=== PATIENT | male | born 1985 | race Caucasian/White ===

== ENCOUNTER 2021-08-25 11:08 | Emergency (ER) | payer OTHER, SELFPAY ==
[2021-08-25 11:20] VITALS: BP 142/90; PULSE 79; RESP 18; O2SAT 96; BMI 27.2
--- NOTE | 2021-08-25 11:25 | DI.RAD.S_ITS ---
PROCEDURE: XR CHEST 1V INDICATIONS: chest pain TECHNIQUE: One view of the chest was acquired. COMPARISON: None. FINDINGS: Surgical changes and devices: None. Lungs and pleura: An incomplete inspiratory result is noted, causing a crowded appearance to the lung markings. No focal infiltrates are seen. No pneumothorax or significant pleural effusions are seen. Mediastinum: Mediastinal contours appear normal. Heart size is normal. Bones and chest wall: No suspicious bony lesions. Overlying soft tissues appear unremarkable. IMPRESSION: Limited portable chest examination, without a significant cardiopulmonary abnormality identified. Dictated by: Bowen Song M.D. on 08/25/2021 at 10:49 Approved by: Bowen Song M.D. on 08/25/2021 at 10:49
[2021-08-25 11:29] VITALS: PULSE 78; RESP 14; O2SAT 97
[2021-08-25 11:30] VITALS: BP 137/92; PULSE 77; RESP 18; O2SAT 96
[2021-08-25 11:39] LABS: Add Manual Diff / Slide Review NO; Basophils Absolute Auto 100 /uL (0-100); Basophils Percent Auto 1.1 % (0-2); Eosinophils Absolute Auto 100 /uL (0-450); Eosinophils Percent Auto 2.7 % (2-4); Hematocrit 47.6 % (41-53); Hemoglobin 16.6 g/dL (13.5-17.5); Lymphocytes Absolute Auto 1700 /uL (1100-4500); Lymphocytes Percent Auto 31.9 % (25-40); Mean Corpuscular HGB Conc 34.8 % (30-36); Mean Corpuscular Hemoglobin 29.8 PG (26-34); Mean Corpuscular Volume 85.6 fL (80-100); Monocytes Absolute Auto 400 /uL (0-900); Monocytes Percent Auto 7.6 % (3-14); Neutrophils Absolute Auto 3100 /uL (1500-7000); Neutrophils Percent Auto 56.7 % (50-75); Platelet Count 247 X10^3/uL (150-400); Red Blood Cell Count 5.57 X10^6/uL (4.5-5.9); Red Cell Distribution Width 12.8 % (11.6-14.8); White Blood Cell Count 5.4 X10^3/uL (4.5-11.0)
[2021-08-25 11:50] LABS: Alanine Aminotransferase 36 IU/L (<50); Albumin 4.6 g/dL (3.5-5.0); Albumin Globulin Ratio 1.4 (1.0-2.8); Alkaline Phosphatase 56 U/L (38-126); Aspartate Aminotransferase 28 IU/L (17-59); BUN Creatinine Ratio 10.6 (6-22); Bilirubin Total 0.8 mg/dL (0.2-1.3); Blood Urea Nitrogen 10 mg/dL (9-20); COVID19 -Nasal RAPID Negative (Negative); Calcium 9.3 mg/dL (8.4-10.2); Carbon Dioxide 23 mmol/L (22-32); Chloride 104 mmol/L (98-107); Creatine Kinase 48 U/L (55-170); Estimated Glomerular Filt Rate > 60.0 mL/min (>60); Globulin 3.2 g/dL (1.7-4.1); Glucose 94 mg/dL (70-100); HEMOLYSIS < 15 (0-50); Lipase 93 U/L (23-300); Sodium 138 mmol/L (137-145); Total Protein 7.8 g/dL (6.3-8.2)
[2021-08-25 12:00] VITALS: PULSE 81; RESP 17; O2SAT 96
[2021-08-25 12:01] LABS: Troponin I < 0.012 ng/mL (0.01-0.034)
--- NOTE | 2021-08-25 12:22 | ED.EXTPRO ---
HPI - Extremity Problem <Rubio Deleon PA-C - Last Filed: 08/25/21 19:34> General Chief complaint: Extremity Problem,Nontraumatic Stated complaint: LT ARM PAIN/EKG DONE [facility] Time Seen by Provider: 08/25/21 12:03 Source: patient Mode of arrival: Ambulatory Limitations: no limitations History of Present Illness HPI Narrative: Patient is a 35-year-old male presenting to the emergency department today for evaluation left arm pain. Patient states is left arm pain began at approximately 2:30 p.m. yesterday, and he describes it as a ?excruciating, shooting pain from the shoulder to the wrist that lasted through last night. He denies numbness and tingling throughout the left upper extremity. Patient notes experiencing bilateral thigh pain 2 days ago that has since resolved. Of note, patient states that he had dental work performed about 1 month ago any notes that he experienced numbness in his chin and lip on 08/21/2021 that he 1st noticed while shaving. Patient denies fever, chills, chest pain, shortness of breath, cough, hemoptysis, abdominal pain, nausea, vomiting, diarrhea, dizziness, changes in vision, diaphoresis. No recent trauma or injuries reported. No other concerns voiced at this time. Related Data Allergies Allergy/AdvReac Type Severity Reaction Status Date / Time No Known Drug Allergies Allergy Verified 08/25/21 11:25 Review of Systems <Rubio Deleon PA-C - Last Filed: 08/25/21 19:34> Constitutional Constitutional: Denies chills, Denies fever(s), Denies frequent falls, Denies lethargy and Denies weakness Eyes Eyes: Denies change in vision, Denies eye discharge, Denies irritation and Denies loss of vision ENT Ears, Nose, Mouth, and Throat: Denies dizziness Cardiovascular Cardiovascular: Denies chest pain, Denies irregular heart rhythm, Denies lightheadedness, Denies palpitations, Denies dyspnea, Denies dyspnea on exertion and Denies orthopnea Respiratory Respiratory: Denies cough, Denies dyspnea, Denies dyspnea on exertion and Denies wheezing Gastrointestinal Gastrointestinal: Denies abdominal pain, Denies change in bowel habits, Denies diarrhea, Denies nausea and Denies vomiting Musculoskeletal Musculoskeletal: Reports numbness (Chin and lip) and Reports other (Left arm pain from shoulder to wrist) Neurologic Neurologic: Denies behavioral changes, Denies confusion, Denies dizziness, Denies frequent falls, Denies loss of vision, Reports numbness (Chin and lip) and Denies weakness Psychiatric Psychiatric: Denies behavioral changes and Denies confusion Endocrine Endocrine: Denies palpitations Allergic/Immunologic Allergic/Immunologic: Denies wheezing Patient History <Rubio Deleon PA-C - Last Filed: 08/25/21 19:34> Social History Smoking Status: Unknown if ever smoked Smoking Status: Unknown if ever smoked alcohol intake frequency: holidays/special occasions only Substance Use Type: does not use Exam <Rubio Deleon PA-C - Last Filed: 08/25/21 19:34> Narrative Exam Narrative: GENERAL: 35 year old patient appears stated age. Well-developed patient, in no acute distress. HEAD: Atraumatic. Normocephalic. EYES: Pupils equal round and reactive. Extraocular motions intact. No scleral icterus. No injection or drainage. ENT: Nose without bleeding, purulent drainage. Throat without erythema, tonsillar hypertrophy or exudate. Airway patent. NECK: Trachea midline. Non tender CARDIOVASCULAR: Regular rate and rhythm without murmurs, gallops, or rubs. RESPIRATORY: Clear to auscultation. Breath sounds equal bilaterally. No wheezes, rales, or rhonchi. GASTROINTESTINAL: Abdomen soft, non-tender, nondistended. EXTREMITIES: No edema throughout the bilateral upper or lower extremities. Mild tenderness to palpation appreciated along the medial aspect of the left elbow. BACK: Nontender without deformity or crepitance. No flank tenderness. NEURO: AOx3. Good sensation appreciated throughout the bilateral upper and lower extremities to light touch. Cranial nerves 2-12 grossly intact. Gross motor function intact. SKIN: No rash or erythema of visible areas Initial Vital Signs Initial Vital Signs: Vital Signs Pulse Rate 79 08/25/21 11:20 Respiratory Rate 18 08/25/21 11:20 Blood Pressure 142/90 H 08/25/21 11:20 Pulse Oximetry 96 08/25/21 11:20 <Nicanor Villa MD - Last Filed: 08/26/21 07:22> Initial Vital Signs Initial Vital Signs: Vital Signs Pulse Rate 79 08/25/21 11:20 Respiratory Rate 18 08/25/21 11:20 Blood Pressure 142/90 H 08/25/21 11:20 Pulse Oximetry 96 08/25/21 11:20 Course <Rubio Deleon PA-C - Last Filed: 08/25/21 19:34> Course Course Narrative: CBC, CMP, lipase, troponin, chest x-ray, EKG, COVID swab all obtained. Orders Ordered: ED Orders 08/25/21 11:25 XR chest 1V Stat COVID19 -Nasal swab/Pre-Proc Stat Complete Blood Count AUTO DIFF Stat Comprehensive Metabolic Panel Stat Lipase Stat Troponin & CK Cardiac Panel Stat EKG-12 Lead Stat Vital Signs Vital signs: Vital Signs - 8 hr 08/25/21 12:00 08/25/21 12:30 Pulse Rate 81 64 Respiratory Rate 17 19 Blood Pressure 128/87 Pulse Oximetry 96 94 <Nicanor Villa MD - Last Filed: 08/26/21 07:22> Orders Ordered: ED Orders 08/25/21 11:25 XR chest 1V Stat COVID19 -Nasal swab/Pre-Proc Stat Complete Blood Count AUTO DIFF Stat Comprehensive Metabolic Panel Stat Lipase Stat Troponin & CK Cardiac Panel Stat EKG-12 Lead Stat Vital Signs Vital signs: Vital Signs - 8 hr 08/25/21 12:00 08/25/21 12:30 Pulse Rate 81 64 Respiratory Rate 17 19 Blood Pressure 128/87 Pulse Oximetry 96 94 MDM - Extremity (Nontraumatic) <Rubio Deleon PA-C - Last Filed: 08/25/21 19:34> Lab Data Lab results narrative: A personally reviewed lab results prior to discharge. Result diagrams: 08/25/21 11:25 08/25/21 11:25 Labs: Lab Results 08/25/21 08/25/21 08/25/21 Range/Units 11:25 11:25 11:25 WBC 5.4 (4.5-11.0) X10^3/uL RBC 5.57 (4.5-5.9) X10^6/uL Hgb 16.6 (13.5-17.5) g/dL Hct 47.6 (41-53) % MCV 85.6 (80-100) fL MCH 29.8 (26-34) PG MCHC 34.8 (30-36) % RDW 12.8 (11.6-14.8) % Plt Count 247 (150-400) X10^3/uL Neut % (Auto) 56.7 (50-75) % Lymph % (Auto) 31.9 (25-40) % [place] % (Auto) 7.6 (3-14) % Eos % (Auto) 2.7 (2-4) % Baso % (Auto) 1.1 (0-2) % Neut # (Auto) 3100 (4803-9046) /uL Lymph # (Auto) 1700 (7146-2827) /uL [place] # (Auto) 400 (0-900) /uL Eos # (Auto) 100 (0-450) /uL Baso # (Auto) 100 (0-100) /uL Sodium 138 (137-145) mmol/L Potassium 4.0 (3.4-5.1) mmol/L Chloride 104 (98-107) mmol/L Carbon Dioxide 23 (22-32) mmol/L BUN 10 (9-20) mg/dL Creatinine 0.94 (0.66-1.25) mg/dL Estimated GFR > 60.0 (>60) mL/min BUN/Creatinine Ratio 10.6 (6-22) Glucose 94 (70-100) mg/dL Calcium 9.3 (8.4-10.2) mg/dL Total Bilirubin 0.8 (0.2-1.3) mg/dL AST 28 (17-59) IU/L ALT 36 (<50) IU/L Alkaline Phosphatase 56 (38-126) U/L Total Creatine Kinase 48 L (55-170) U/L CK-MB (CK-2) TNP CK-MB (CK-2) Rel Index TNP Troponin I < 0.012 (0.01-0.034) ng/mL Total Protein 7.8 (6.3-8.2) g/dL Albumin 4.6 (3.5-5.0) g/dL Globulin 3.2 (1.7-4.1) g/dL Albumin/Globulin Ratio 1.4 (1.0-2.8) Lipase 93 (23-300) U/L SARS-CoV-2 (PCR) Negative (Negative) Imaging Data Chest x-ray: Radiologist's Impression: PROCEDURE: XR CHEST 1V INDICATIONS: chest pain TECHNIQUE: One view of the chest was acquired. COMPARISON: None. FINDINGS: Surgical changes and devices: None. Lungs and pleura: An incomplete inspiratory result is noted, causing a crowded appearance to the lung markings. No focal infiltrates are seen. No pneumothorax or significant pleural effusions are seen. Mediastinum: Mediastinal contours appear normal. Heart size is normal. Bones and chest wall: No suspicious bony lesions. Overlying soft tissues appear unremarkable. IMPRESSION: Limited portable chest examination, without a significant cardiopulmonary abnormality identified. Dictated by: Bowen Song M.D. on 08/25/2021 at 10:49 Approved by: Bowen Song M.D. on 08/25/2021 at 10:49 ECG Data Interpretation: Rate of 77 beats per minute, no acute ST wave changes, no axis deviation, normal sinus rhythm. MDM Narrative Medical decision making narrative: Patient is a 35-year-old male presenting to the emergency department today for evaluation left arm pain. To consider myocardial infarction versus ACS versus cervical radiculopathy versus pulmonary embolism. Overall physical examination and history are reassuring. Vital signs have been stable in the emergency department with oxygen saturation in the mid to high 90s the patient has not been tachycardic. Additionally, EKG showed normal sinus rhythm no abnormalities. Patient is also free of shortness of breath or chest pain at this time and has denied it prior to arriving to the emergency department. Lab results of also returned reassuring. This test the patient results of lab findings and chest x-ray, at this time he feels comfortable being discharged home and opts against further workup at this time. Strict return precautions discussed with the patient prior to discharge. <Nicanor Villa MD - Last Filed: 08/26/21 07:22> Lab Data Labs: Lab Results 08/25/21 08/25/21 08/25/21 Range/Units 11:25 11:25 11:25 WBC 5.4 (4.5-11.0) X10^3/uL RBC 5.57 (4.5-5.9) X10^6/uL Hgb 16.6 (13.5-17.5) g/dL Hct 47.6 (41-53) % MCV 85.6 (80-100) fL MCH 29.8 (26-34) PG MCHC 34.8 (30-36) % RDW 12.8 (11.6-14.8) % Plt Count 247 (150-400) X10^3/uL Neut % (Auto) 56.7 (50-75) % Lymph % (Auto) 31.9 (25-40) % [place] % (Auto) 7.6 (3-14) % Eos % (Auto) 2.7 (2-4) % Baso % (Auto) 1.1 (0-2) % Neut # (Auto) 3100 (9876-6480) /uL Lymph # (Auto) 1700 (2948-8669) /uL [place] # (Auto) 400 (0-900) /uL Eos # (Auto) 100 (0-450) /uL Baso # (Auto) 100 (0-100) /uL Sodium 138 (137-145) mmol/L Potassium 4.0 (3.4-5.1) mmol/L Chloride 104 (98-107) mmol/L Carbon Dioxide 23 (22-32) mmol/L BUN 10 (9-20) mg/dL Creatinine 0.94 (0.66-1.25) mg/dL Estimated GFR > 60.0 (>60) mL/min BUN/Creatinine Ratio 10.6 (6-22) Glucose 94 (70-100) mg/dL Calcium 9.3 (8.4-10.2) mg/dL Total Bilirubin 0.8 (0.2-1.3) mg/dL AST 28 (17-59) IU/L ALT 36 (<50) IU/L Alkaline Phosphatase 56 (38-126) U/L Total Creatine Kinase 48 L (55-170) U/L CK-MB (CK-2) TNP CK-MB (CK-2) Rel Index TNP Troponin I < 0.012 (0.01-0.034) ng/mL Total Protein 7.8 (6.3-8.2) g/dL Albumin 4.6 (3.5-5.0) g/dL Globulin 3.2 (1.7-4.1) g/dL Albumin/Globulin Ratio 1.4 (1.0-2.8) Lipase 93 (23-300) U/L SARS-CoV-2 (PCR) Negative (Negative) Critical Care Time <Rubio Clapper, PA-C - Last Filed: 08/25/21 19:34> Critical Care Time Attestation: PROCEDURE: XR CHEST 1V INDICATIONS: chest pain TECHNIQUE: One view of the chest was acquired. COMPARISON: None. FINDINGS: Surgical changes and devices: None. Lungs and pleura: An incomplete inspiratory result is noted, causing a crowded appearance to the lung markings. No focal infiltrates are seen. No pneumothorax or significant pleural effusions are seen. Mediastinum: Mediastinal contours appear normal. Heart size is normal. Bones and chest wall: No suspicious bony lesions. Overlying soft tissues appear unremarkable. IMPRESSION: Limited portable chest examination, without a significant cardiopulmonary abnormality identified. Dictated by: Bowen Song M.D. on 08/25/2021 at 10:49 Approved by: Bowen Song M.D. on 08/25/2021 at 10:49 Discharge Plan Departure Patient Disposition: Home Clinical Impression: Left arm pain Instructions: DI for Arm Pain Activity Restrictions/Additional Instructions: *You have been diagnosed with left arm pain *What to do: *Please continue to take your regular medications as directed. [ ] New medication prescriptions sent to your pharmacy: [ ] [ ] New medication written as a paper prescription [X ] No new medications given *Please ollow up with your primary care provider in 2-3 days, call for an appointment. Let them know you were seen in the Emergency Department and that we ask that you be seen in follow up. We will electronically transmit a record of today's note if your PCP is in our system *If you do not have a primary care provider please contact the [facility] Resource line at [phone]. They will ask some questions about your medical history and help get you set up with a doctor in the community. *Return to Emergency Department if you should have any new, worsening or concerning symptoms, such as fever greater than 101 F, shaking chills, worsening arm pain, chest pain, shortness of breath, persistent vomiting worsening leg pain, or other bothersome symptoms. Referrals: Bert Duran DO [Primary Care Provider] -
[2021-08-25 12:30] VITALS: BP 128/87; PULSE 64; RESP 19; O2SAT 94
== END 2021-08-25 12:58 | disposition home or self-care (01) ==
PROVIDERS: Emergency Medicine; Emergency Provider Physician Assistant; PCP Student in an Organized Health Care Education/Training Program
DX: M79.602 Pain in left arm (principal); R03.0 Elevated blood-pressure reading, without diagnosis of hypertension; Z20.822 Contact with and (suspected) exposure to COVID-19
CPT/HCPCS: 36415; 71045; 80053; 82550; 83690; 84484; 85025; 87635; 93005; 93010; 99283; 99284; C9803

== ENCOUNTER 2021-09-08 20:53 | Emergency (ER) | payer OTHER, SELFPAY ==
[2021-09-08 21:05] VITALS: BP 157/88; PULSE 88; RESP 16; TEMP 37.4; O2SAT 98; BMI 26.5
[2021-09-08] MEDS: HYDROCODONE/ACET 5/325 PREPACK 1 BOTTLE MISC (22:19)
[2021-09-08] MEDS: BUPIVACAINE 0.25% (PF) VIAL 5 ML SUBCUT (22:19)
[2021-09-08 22:23] VITALS: BP 132/87; PULSE 75; RESP 19; O2SAT 96
--- NOTE | 2021-09-09 01:52 | ED_ITS ---
HPI - Dental/Oral General Chief complaint: Dental/Oral Stated complaint: nerve pain/head pain Time Seen by Provider: 09/08/21 21:09 History of Present Illness HPI Narrative: 35-year-old male nonsmoker with known dental history presents with a chief complaint of worsening right lower jaw pain and some sharp and stabbing pain on the right side of his head. He denies any blurred vision or trouble with speech. He denies any recent trauma or injury. He has had no fever or chills. He has a dental implant on the right lower side which is causing trouble, he recently saw his dentist and was started on amoxicillin of which she has taken 3 doses. He denies any facial swelling or difficulty in swallowing. He has no chest pain or trouble breathing Related Data Allergies Allergy/AdvReac Type Severity Reaction Status Date / Time No Known Drug Allergies Allergy Verified 08/25/21 11:25 Review of Systems Review of Systems Narrative: GENERAL: Denies chills, fatigue, malaise, fever, sweats. HEENT: See HPI RESPIRATORY: Denies dyspnea, cough, wheezing, hemoptysis, sputum. CARDIOVASCULAR: Denies chest pain, palpitations, orthopnea, edema, GASTROINTESTINAL: Denies nausea, vomiting, abdominal pain, diarrhea, constipation, melena. : Denies dysuria, frequency, incontinence, hematuria, urinary retention. MUSCULOSKELETAL: denies weakness, joint pain, or bony pain SKIN: Denies rash, skin lesions, or other NEUROLOGIC: Denies weakness, headache, numbness, change in speech, confusion, seizures, incoordination. PSYCHIATRIC: No concerning psychosocial issues. 12 point review of systems is negative except for those stated above Patient History Social History Smoking Status: Unknown if ever smoked Smoking Status: Unknown if ever smoked alcohol intake frequency: holidays/special occasions only Substance Use Type: does not use Exam Narrative Exam Narrative: GEN: AOx3 and in mild distress EYES: Pupils are equal, round, and reactive to light and accommodation. Extraoccular muscles are intact bilaterally. There is no subconjunctival hemorrhage or exudate. ENT: No facial swelling, redness, induration or fluctuance. Intraoral exam demonstrates no obvious swelling, fluctuance or drainage CHEST: Lungs are clear to auscultation bilaterally and free of wheezes, rales, or rhonchi. Heart rate is regular rhythm, there are no murmurs, clicks, rubs, or gallops. There is no chest wall tenderness. ABD: Abdomen is soft and nontender. There is no guarding or rebound. Bowel sounds are normal in all 4 quadrants. There is no mass or organomegaly. EXT: Full painless ROM of all extremities with no loss of sensation or strength. SKIN: Warm, pink, and dry. No erythema or rash Initial Vital Signs Initial Vital Signs: Vital Signs Temperature 99.4 F 09/08/21 21:05 Pulse Rate 88 09/08/21 21:05 Respiratory Rate 16 09/08/21 21:05 Blood Pressure 157/88 H 09/08/21 21:05 Pulse Oximetry 98 09/08/21 21:05 Procedures Nerve Block Nerve Block 1: Time out performed: Yes Local Anesthetic: bupivacaine 0.25% Amount of anesthesia used (mL): 4 Side: right Intraoral Nerve Block: inferior alveolar Procedure Successful: Yes Patient Tolerated Procedure: Well Complications: none Course Orders Ordered: Discontinued Medications Hydrocodone Bitart/Acetaminophen (Hydrocodone/Acet 5/325 Prepack) 1 bottle MISC SEEINSTR ONE Stop: 09/08/21 22:13 Last Admin: 09/08/21 22:19 Dose: 1 bottle Documented by: KATEYRNA Bupivacaine HCl (Bupivacaine 0.25% (Pf) Vial) 5 ml SUBCUT NOW ONE Stop: 09/08/21 22:13 Last Admin: 09/08/21 22:19 Dose: 5 ml Documented by: KATERYNA Vital Signs Vital signs: Vital Signs - 8 hr 09/08/21 21:05 09/08/21 22:23 Temperature 99.4 F Pulse Rate 88 75 Respiratory Rate 16 19 Blood Pressure 157/88 H 132/87 Pulse Oximetry 98 96 Discharge Plan Departure Patient Disposition: Home Clinical Impression: Toothache Instructions: DI for Dental Pain Activity Restrictions/Additional Instructions: *You have been diagnosed with [dental pain] *What to do: *Please continue to take your regular medications as directed. [ ] New medication prescriptions sent to your pharmacy: [ ] [ ] New medication written as a paper prescription [x ] No new medications given *Please follow up with your primary care provider in 2-3 days, call for an appointment. Let them know you were seen in the Emergency Department and that we ask that you be seen in follow up. We will electronically transmit a record of today's note if your PCP is in our system *If you do not have a primary care provider please contact the [facility] Resource line at [phone]. They will ask some questions about your medical history and help get you set up with a doctor in the community. *Return to Emergency Department if you should have any new, worsening or concerning symptoms, such as [fever greater than 101 F, shaking chills, worsening pain, persistent vomiting or other bothersome symptoms] You have been prescribed a short course of narcotic medications. These are potentially dangerous and addictive medications that should be used carefully. While on these medications you cannot drive or operate heavy machinery. A dditionally, you cannot sign legal documents or perform any duties such as this. 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 Please understand that we cannot provide further refills of narcotics or controlled substances through the ED and your pain management will need to be through your Primary Care Provider Referrals: Bert Duran, [Primary Care Provider] -
== END 2021-09-08 22:27 | disposition home or self-care (01) ==
PROVIDERS: Emergency Provider Emergency Medicine; PCP Student in an Organized Health Care Education/Training Program
DX: K08.89 Other specified disorders of teeth and supporting structures (principal)
CPT/HCPCS: 64400; 99281; 99283

== ENCOUNTER → 2021-09-14 17:35 | Outpatient (CLI) | payer OTHER, SELFPAY ==
--- NOTE | 2021-09-14 | DI.MRI.S_ITS ---
PROCEDURE: MR HEAD/BRAIN WO CON INDICATIONS: paresthesia of skin TECHNIQUE: Noncontrast axial T1 spin echo, axial T2 fast spin echo, sagittal and axial FLAIR, coronal T2 fast spin echo, axial gradient echo, axial diffusion and ADC through the brain. COMPARISON: None. FINDINGS: Image quality: Excellent. CSF Spaces: Basal cisterns are patent. No extra-axial fluid collections. Ventricles are normal in size and shape. Brain: No intracranial masses or hemorrhage. Arana/white matter interface is normal. Brainstem appears normal. Diffusion-weighted images demonstrate no acute ischemic insult. No chronic ischemic insults. Normal intravascular flow voids are present. No abnormal T2 hyperintense white matter lesions are seen. Skull and face: Calvarium has normal marrow signal. Orbits appear normal. Sinuses: Sinuses and mastoids are clear. IMPRESSION: Unremarkable intracranial study for age, without an imaging explanation found for the patient's presenting symptoms. No abnormal T2 hyperintense white matter lesions are seen. No findings of acute or subacute infarction can be seen. Dictated by: Bowen Song M.D. on 09/14/2021 at 17:41 Approved by: Bowen Song M.D. on 09/14/2021 at 17:43
== END ==
PROVIDERS: PCP Student in an Organized Health Care Education/Training Program; Referring Provider Student in an Organized Health Care Education/Training Program; Visit Provider Student in an Organized Health Care Education/Training Program
DX: R20.2 Paresthesia of skin (principal)
CPT/HCPCS: 70551

== ENCOUNTER → 2022-02-05 12:09 | Outpatient (CLI) | payer OTHER, SELFPAY ==
--- NOTE | 2022-02-05 | DI.MRI.S_ITS ---
PROCEDURE: MR FEMUR LT WO/W CON INDICATIONS: Burkitt lymphoma, lymph nodes of multiple sites TECHNIQUE: Noncontrast coronal T1 spin echo and STIR, sagittal T1 spin echo with fat saturation and STIR, axial T1 spin echo and T2 fast spin echo with fat saturation. After the administration of contrast, axial/sagittal/coronal T1 spin echo with fat saturation through the left thigh. COMPARISON: None. FINDINGS: Image quality: Excellent. Bones: Examination of left femur shows heterogeneously T2 hyperintense areas scattered in medullary space of left proximal to mid femoral shaft. Similar marrow signal abnormality in right femoral shaft medullary space is also seen. No adjacent cortical erosion or periosteal reaction is noted. No cortical destruction is not seen. No other area of abnormal marrow signal. Soft tissues: No soft tissue masses are visualized. The scanned muscles demonstrate normal overall bulk and internal signal. Subcutaneous tissues appear normal as well. No abnormal soft tissue enhancement. No abnormally enlarged lymph nodes are seen in right inguinal region or right thigh. IMPRESSION: 1. Heterogeneous marrow signal involving medullary space of bilateral proximal to mid femoral shaft and shows mild peripheral contrast enhancement. Finding is concerning for lymphoma involvement of bilateral femoral shaft. No periosteal reaction or cortical destruction is seen. No other area of abnormal marrow signal. 2. No gross left thigh muscle or soft tissue abnormality is seen. No enlarged lymph nodes are noted. Dictated by: Sterling Cid M.D. on 02/05/2022 at 14:42 Approved by: Sterling Cid M.D. on 02/05/2022 at 15:27
== END ==
PROVIDERS: PCP Nurse Practitioner Family; Referring Provider Internal Medicine Hematology & Oncology; Visit Provider Internal Medicine Hematology & Oncology
DX: C83.78 Burkitt lymphoma, lymph nodes of multiple sites (principal)
CPT/HCPCS: 73720